=== PATIENT | male | born 1945 | race Caucasian/White ===

== ENCOUNTER 2018-05-08 07:30 | Inpatient (IN) ==
[2018-05-08] MEDS ORDERED: Metoprolol Tartrate 25 MG Tablet PO SCH (10:15)
[2018-05-08] MEDS ORDERED: Chlorhexidine 4% Topical 120 APPLIC/120 ML Bottle TOPICAL SCH (10:15)
[2018-05-08] MEDS ORDERED: Chlorhexidine Gluconate 2% 1 Pack (2 Cloths) TOPICAL SCH (10:15)
[2018-05-08] MEDS ORDERED: Vancomycin Inj 1,000 MG in Sodium Chlor 0.9% Inj 250 ML IV.SIG SCH (11:00)
[2018-05-08] MEDS ORDERED: ceFAZolin 2 GM Premix Inj 2 GM/50 ML PIGGYBACK IV.SIG SCH (11:00)
[2018-05-08] MEDS ORDERED: Sodium Chlor 0.9% Inj 500 ML IV.SIG SCH (11:00)
[2018-05-08] MEDS ORDERED: Ketamine Inj 50 MG/5 ML Syringe IV.PUSH ONE (11:13)
[2018-05-08] MEDS ORDERED: Dexmedetomidine Inj 200 MCG/2 ML Vial ONE (11:13)
[2018-05-08] MEDS ORDERED: Glycopyrrolate Inj 1 MG/5 ML Syringe IV.PUSH ONE (12:00)
[2018-05-08] MEDS ORDERED: Lidocaine PF 1% Inj 5 ML Syringe INFILTRATN ONE (12:00)
[2018-05-08] MEDS ORDERED: Phenylephrine/NS 1000 MCG/10ML Syringe IV.PUSH ONE (12:00)
[2018-05-08] MEDS ORDERED: Neostigmine Inj 5 MG/5 ML Syringe IV.PUSH ONE (12:00)
[2018-05-08 13:35] LABS: ABG Base Excess -1.3 mmol/L (-2-2); ABG PCO2 42 mmHg (38-42); ABG PO2 77 mmHG (61-120)
[2018-05-08] MEDS ORDERED: fentaNYL Citrate Inj 100 MCG/2 ML Ampul ONE ×2 (13:39→14:33)
--- NOTE | 2018-05-08 13:48 | P.OP ---
- Preoperative Diagnosis Malfunctioning left total hip replacement arthroplasty. Loosened femoral stem. Status post cemented left hip bipolar replacement arthroplasty, remote - Postoperative Diagnosis Same Date of procedure: 05/08/18 Procedure: Revision left total hip replacement arthroplasty Anesthesia: JOHNATHANA Surgeon: Pancho Hope MD Filler In: Bakari Hope MD Operation and Findings: EBL: 1300 cc INDICATION: This patient is a 73-year-old male status post cemented left bipolar hip replacement in [facility] several years ago for a fractured femoral neck. The patient has evidence of loosening of the femoral stem. There is no evidence of infection. He has shortening and malfunction of the left hip replacement. He now presents for surgical treatment. NOTE: Bakari Hope MD was present for the entire surgical procedure as my tax accounting assistant. In my medical opinion his skill and care was necessary for the proper management of this patient. COMPONENTS: COMPANY: [employer] CUP: [place], 60 mm, 100 series STEM: Size 18.0, AML, large triangle, high offset. HEAD: 36, +5, metal, 12/14 taper PROCEDURE: This patient was brought to the operating room and anesthetized in the supine position and positioned on the routine table in the clean air suite. The patient was then rolled to a left side up lateral position and held with a Biomet hip positioner. The hip and leg was scrubbed with alcohol followed by Hibiclens followed by chloro prep and draped sterilely. A timeout was done and antibiotics were given within a routine time window. The posterior previous incision was excised. The iliotibial band was opened in line with the incision. The Charnley retractors were positioned. The posterior capsule and external rotators were taken down together in a sleeve. The sciatic nerve was palpated to be free of any obstruction or compression and posterior to the hip joint without any evidence of traction from the retractor. The previous stem and bipolar cup was exposed. The hip was dislocated posteriorly. The head was removed after being disimpacted. The femoral stem was removed. There was no cement around the stem. We worked in the canal using a combination of curettes, osteotomes and reverse gouges. The previous cement was removed completely. We drilled through the distal cement mantle. The previous cement restrictor was removed. The canal was curetted of all fibrinous debris. Bone quality appeared to be excellent. The canal was reamed initially from a 13 mm up to 17.5 mm. This was broached to accept an 18 mm AML stem with a large triangle and high offset. Overall fit and fill was excellent. We had trialed with a 16.5 and the triangle was not large enough because of the nature of the patient's anatomy. The acetabulum was inspected. Deep retractors were positioned. The acetabulum was deepened down to the floor and started with a proper size reamer and reaming up to 59 mm. This was trialed with the same size trial. Overall fit was satisfactory. The proper cup was placed in approximately 40 of abduction and 30 of forward flexion. The final liner was positioned. The final stem was inserted in approximately 20 of anteversion. The final head was impacted. The hip was reduced. Leg length appeared to be equalized. The patient was approximately 1 inch short to begin with. At 90 flexion it was stable to 60 of internal rotation. With full external rotation and extension, it could not be subluxed anteriorly. The posterior capsule and external rotators were repaired through bone with interrupted #2 Tycron sutures. The piriformis muscle was repaired with the same. The iliotibial band with interrupted #1 Vicryl sutures. Subcutaneous tissue was approximated with 2-0 Vicryl suture and skin with running intradermal 3-0 Vicryl followed by Steri-Strips and benzoin. A sterile dressing was applied.. The sponge count needle counts and instrument counts were all correct. The patient was awakened and taken to the recovery room in satisfactory condition FINDINGS: The stem was grossly loose. The cement mantle was loose at the top. There did not appear to be any obvious complication.
[2018-05-08] MEDS ORDERED: Post-op Orders (for Pharmacy) OTHER STA (14:17)
[2018-05-08] MEDS ORDERED: Bisacodyl 10 MG Supp RECTAL PRN (14:17)
[2018-05-08] MEDS ORDERED: Morphine Inj 4 MG/ML Vial IV.PUSH PRN (14:17)
[2018-05-08 14:38] LABS: ABG Base Excess -3.1 mmol/L (-2-2); ABG PCO2 33 mmHg (38-42); ABG PO2 125 mmHG (61-120)
[2018-05-08] MEDS: *morphine SULFATE 10 MG/ML PERIprocedure ONLY ONE ×2 (14:52→15:36)
[2018-05-08 15:13] LABS: Hematocrit 33.8 % (39.0-51.0); Hemoglobin 11.6 gm/dL (13.0-17.0); Mean Corpuscular HGB Conc 34.3 % (32.0-36.0); Mean Corpuscular Hemoglobin 33.3 pg (27.0-34.0); Mean Corpuscular Volume 97.1 fL (80.0-100.0); Mean Platelet Volume 8.5 fL (7.0-11.0); Platelet Count 174 th/mm3 (150-450); Red Blood Count 3.48 mil/mm3 (4.50-5.90); Red Cell Distribution Width 13.3 % (11.6-17.2); White Blood Count 10.1 th/mm3 (4.0-11.0)
[2018-05-08] MEDS ORDERED: *morphine SULFATE 10 MG/ML PERIprocedure ONLY ONE (15:28)
--- NOTE | 2018-05-08 16:33 | XR ---
EXAM DATE: 05/08/2018 3:58 PM EDT AGE/SEX: 73 years / Male INDICATIONS: Post op left hip prosthesis. CLINICAL DATA: This is the patient's initial encounter. Patient reports that signs and symptoms have been present for 1 day and indicates a pain score of 10/10. MEDICAL/SURGICAL HISTORY: None. None. COMPARISON: No prior exams available for comparison. FINDINGS: The patient is post left hip arthroplasty. The orthopedic hardware is in excellent position. The alig nment is good. There is no evidence of complication. CONCLUSION: Orthopedic hardware in excellent position. Electronically signed by: Ifeanyi Alcaraz MD 05/08/2018 4:32 PM EDT
[2018-05-08] MEDS ORDERED: LORazepam 1 MG Tablet PO PRN (17:25)
[2018-05-08] MEDS ORDERED: Haloperidol Inj 5 MG/ML Ampul IV.PUSH PRN (17:25)
--- NOTE | 2018-05-08 17:40 | P.CON ---
History of Present Illness Service: Medicine Consult date: 05/08/18 Requesting Physician: Bakari Hope Reason for Consult: medical management Primary Care Provider: Angel Fonseca MD Chief Complaint: medical management History of Present Illness: This is a 73-year-old male past medical history of hypertension and alcohol dependence who presented with revision of the left total hip replacement arthroplasty by Dr. Bakari Hope. Medical hospitalist consulted for medical management. Patient seen on the orthopedic floor after surgery. He was very groggy but was able to give me history. Patient complaining of left hip pain. Otherwise after the interview he went to sleep right away. I spoke to patient' s nurse who stated that when patient came onto the floor his systolic blood pressure was 80. He was put in Trendelenburg position in which his blood pressure improved to systolic blood pressure 115. Patient also received 2 L bolus in the PACU and was placed on 100 cc/h of normal saline. Patient did lose about 1500 cc of blood during the surgery and when he presented on the floor his bandages was saturated with blood. Patient stated that he drinks about 12 cans of beer a day. He stated that he does get very shaky when he does not drink. Otherwise he has no other complaints. Review of Systems Constitutional: Denies anorexia, Denies body ache(s), Denies chills, Denies daytime sleepiness, Denies excessive sweating, Denies fatigue, Denies fever(s), Denies headache(s), Denies increased appetite, Denies lack of energy, Denies malaise, Denies night sweats, Denies weakness, Denies weight gain, Denies weight loss, Denies other Eyes: Denies blind spots, Denies blurry vision, Denies bulging eyes, Denies change in vision, Denies double vision, Denies discharge, Denies dry eyes, Denies floaters, Denies irritation, Denies itchy eyes, Denies loss of vision, Denies pain, Denies requires corrective lenses, Denies sensitivity to light, Denies other Ears, Nose, Mouth, and Throat: Denies abnormal hearing, Denies bleeding gums, Denies bad breath, Denies change in voice, Denies dental pain, Denies difficulty swallowing, Denies dizziness, Denies dry mouth, Denies ear discharge , Denies ear pain, Denies facial pain, Denies headache(s), Denies hearing loss, Denies hoarseness, Denies lip swelling, Denies nosebleed, Denies mouth lesions, Denies mouth pain, Denies nasal congestion, Denies nasal discharge, Denies nasal obstruction, Denies nasal trauma, Denies neck lump, Denies neck pain, Denies nose pain, Denies pain with swallowing, Denies poor balance, Denies post nasal drip, Denies ringing in the ears, Denies sinus pain, Denies sinus pressure , Denies sore throat, Denies throat swelling, Denies tongue swelling, Denies other Cardiovascular: Denies chest pain, Denies chest pain at rest, Denies chest pain with activity, Denies excessive sweating, Denies fainting, Denies fast heart rate, Denies foot swelling, Denies generalized swelling, Denies irregular heart rhythm, Denies leg pain with activity, Denies leg sores, Denies leg swelling, Denies lightheadedness, Denies radiating jaw, neck or arm pain, Denies rapid, pounding, or irregular heartbeat, Denies shortness of breath, Denies shortness of breath with activity, Denies shortness of breath when lying down, Denies shortness of breath causing sudden awakening, Denies slow heart rate, Denies other Respiratory: Denies change in phlegm color, Denies chest congestion, Denies cough, Denies coughing up blood, Denies excessive phlegm production, Denies pain on inspiration, Denies pain with cough, Denies shortness of breath, Denies shortness of breath with activity, Denies snoring, Denies stridor, Denies wheezing, Denies other Gastrointestinal: Denies abdominal pain, Denies belching, Denies black, tarry stools, Denies bloating, Denies bright, red blood in stools, Denies change in bowel habits, Denies constant urge to pass stool, Denies change in stools, Denies coffee ground vomit, Denies constipation, Denies cramping, Denies difficulty swallowing, Denies excessive passing of gas, Denies feeling full early, Denies heartburn, Denies incontinent of stools, Denies loose stools, Denies nausea, Denies pain with swallowing, Denies vomiting, Denies vomiting blood, Denies other Genitourinary: Denies blood in semen, Denies blood in urine, Denies decreased urination, Denies difficulty urinating, Denies difficulty with ejaculations, Denies erectile dysfunction, Denies genital lesions, Denies genital pain, Denies painful urination, Denies side pain, Denies frequent nighttime urination , Denies painful ejaculations, Denies penile discharge, Denies scrotal swelling , Denies testicle lump, Denies testicle pain, Denies urinary frequency, Denies urinary hesitancy, Denies urinary incontinence, Denies urinary urgency, Denies other Musculoskeletal: Reports joint pain Comments: Right hip pain where he had the surgery at. Skin/Breast: Denies acne, Denies bleeding lesions, Denies boil, Denies breast swelling, Denies breast skin changes, Denies breast pain, Denies breast lump, Denies change in breast shape, Denies change in hair, Denies change in skin color, Denies changing lesions, Denies dry skin, Denies excessive hair growth, Denies hair loss, Denies itching, Denies lesions, Denies nail changes, Denies new lesions, Denies nipple discharge, Denies non-healing lesions, Denies redness , Denies sensitivity to light, Denies rash, Denies skin pain, Denies skin ulcer , Denies sores, Denies stretch vallejo, Denies unusual bruising, Denies wounds, Denies yellowing of the skin, Denies other Neurologic: Denies abnormal hearing, Denies abnormal movements, Denies abnormal speech, Denies abnormal walking, Denies behavioral changes, Denies burning sensations, Denies confusion, Denies dizziness, Denies fainting, Denies frequent falls, Denies headache(s), Denies lack of coordination, Denies localized weakness, Denies loss of vision, Denies memory loss, Denies numbness, Denies other visual disturbances, Denies radiating pain, Denies restless legs, Denies convulsions, Denies seizure-like activity, Denies sensory deficit, Denies tingling, Denies tingling/numbness/burning sensations, Denies tremor(s), Denies unsteadiness, Denies weakness, Denies other Psychiatric: Denies abnormal sleep pattern, Denies anxiety, Denies behavioral changes, Denies change in appetite, Denies change in sex drive, Denies confusion , Denies depression, Denies difficulty concentrating, Denies hearing things others do not hear, Denies hopelessness, Denies irritability, Denies lack of enjoyment, Denies memory loss, Denies mood swings, Denies panic attacks, Denies paranoia, Denies seeing things others do not see, Denies sensing things others do not sense, Denies tactile hallucinations, Denies thoughts of hurting/killing others, Denies thoughts of hurting/killing yourself, Denies other Endocrine: Denies cold intolerance, Denies excessive sweating, Denies flushing, Denies heat intolerance, Denies increased hunger, Denies increased thirst, Denies increased urination, Denies rapid, pounding, or irregular heartbeat, Denies other Hematologic/Lymphatic: Denies easy bleeding, Denies easy bruising, Denies enlarged lymph nodes, Denies other Allergic/Immunologic: Denies GI upset with certain foods, Denies hives, Denies itchy eyes, Denies lip swelling, Denies seasonal runny nose, Denies throat swelling, Denies tongue swelling, Denies wheezing, Denies other PMFSH - History History Provided By: Patient - Medical History Medical History: Medical History (Last Updated 05/08/18 @ 17:35 by Ana Rivera MD) Alcohol abuse Hypertension - Surgical History Surgical History: Surgical History (Last Reviewed 05/08/18 @ 15:56 by Maricarmen Kemp PT) H/O total hip arthroplasty - Family History Family History: Family History (Last Updated 05/08/18 @ 17:35 by Ana Rivera MD) Other Family history non-contributory - Tobacco History Second Hand Smoke Exposure: No Smoking Status: Never smoker - Alcohol History How Often Do You Have a Drink Containing Alcohol: 4 or more times a week - Substance Use History Substance History: Active Abuse - Travel History [facility] Within the Last 8 Weeks: No Medications and Allergies Active Medications: Active Medications Hydrocodone Bitart/Acetaminophen ([place] 7.5/325) 1 tab PO Q4H PRN PRN Reason: PAIN LESS THAN 5 ON SCALE Hydrocodone Bitart/Acetaminophen ([place] 7.5/325) 2 tab PO Q6H PRN PRN Reason: PAIN SCALE 5 TO 10 Al Hydroxide/Mg Hydroxide (Milk Of Magnesia Liq) 30 ml PO BID PRN PRN Reason: Mild Constipation Bisacodyl (Dulcolax Supp) 10 mg RECTAL DAILY PRN PRN Reason: SEVERE CONSITIPATION Chlorhexidine Gluconate (Chlorhexidine 2% Cloth) 3 pack 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 [facility] Stop: 05/11/18 10:11 Last Admin: 05/08/18 10:00 Dose: 3 pack Chlorhexidine Gluconate (Hibiclens 4% Topical) 1 applicatio TOPICAL ONCE [facility] Stop: 05/12/18 10:14 Flumazenil (Romazecon Inj) 0.2 mg IV.PUSH Q1M PRN PRN Reason: OVERSEDATION Folic Acid (Folic Acid) 1 mg PO DAILY [facility] Haloperidol Lactate (Haldol Inj) 1 mg IV.PUSH Q15M PRN PRN Reason: for severe agitation Sodium Chloride (Ns Inj) 500 mls @ 30 mls/hr IV.SIG .Q10H [facility] Stop: 05/11/18 10:11 Lactated Ringer's (Lr 1000 Ml Inj) 1,000 mls @ 30 mls/hr IV.SIG .Q24H [facility] Stop: 05/11/18 10:11 Last Infusion: 05/08/18 12:30 Dose: Infused Vancomycin HCl 1,000 mg/ (Sodium Chloride) 250 mls @ 250 mls/hr IV.SIG [employer] [facility] Stop: 05/11/18 10:15 Last Infusion: 05/08/18 11:03 Dose: Infused Cefazolin Sodium/Dextrose (Ancef 2 Gm Premix Inj) 2 gm in 50 mls @ 100 mls/hr IV.SIG [employer] [facility] Stop: 05/12/18 10:59 Cefazolin Sodium 1,000 mg/ (Sodium Chloride) 100 mls @ 200 mls/hr IV.SIG Q6H [facility] Stop: 05/09/18 03:29 Last Admin: 05/08/18 16:30 Dose: 200 mls/hr Lactated Ringer's (Lr 1000 Ml Inj) 1,000 mls @ 0 mls/hr IV.SIG .Q0M [facility] Stop: 05/08/18 23:59 Last Admin: 05/08/18 15:40 Dose: 1,000 mls/hr Lactated Ringer's (Lr 1000 Ml Inj) 1,000 mls @ 0 mls/hr IV.SIG .Q0M [facility] Last Admin: 08/16/18 15:51 Dose: 1,000 mls/hr Lactulose (Lactulose Liq) 30 ml PO DAILY PRN PRN Reason: SEVERE CONSITIPATION Lorazepam (Ativan) 1 mg PO Q4H PRN PRN Reason: for CIWA 8-10 Lorazepam (Ativan) 2 mg PO Q2H PRN PRN Reason: for CIWA 11-14 Lorazepam (Ativan Inj) 2 mg IV.PUSH Q2H PRN PRN Reason: for CIWA 11-14 Lorazepam (Ativan Inj) 2 mg IV.PUSH Q1H PRN PRN Reason: for CIWA 15-20 Lorazepam (Ativan Inj) 2 mg IV.PUSH Q15M PRN PRN Reason: for CIWA > 20 Lorazepam (Ativan Inj) 1 mg IV.PUSH Q4H PRN PRN Reason: for CIWA 8-10 Metoprolol Tartrate (Lopressor) 25 mg PO [employer] [facility] Stop: 05/11/18 10:11 Last Admin: 05/08/18 10:36 Dose: Not Given Miscellaneous Information ([facility] Information) 1 each OTHER UNSCH PRN PRN Reason: SEE LABEL COMMENTS Stop: 05/09/18 14:14 Morphine Sulfate (Morphine Inj) 3 mg IV.PUSH Q3H PRN PRN Reason: BREAKTHROUGH PAIN Multivitamins (Theragran) 1 tab PO DAILY [facility] Ondansetron HCl (Zofran Odt) 4 mg PO Q6H PRN PRN Reason: NAUSEA OR VOMITING Patient Medication Teaching (Coumadin Booklet) 1 each OTHER ONCE ONE Stop: 05/08/18 14:18 Povidone Iodine (Betadine 5% Antisepsis Kit) 1 applicatio EACH [employer] [facility] Stop: 05/11/18 10:11 Last Admin: 05/08/18 10:20 Dose: 1 applicatio Senna/Docusate Sodium (Karla-Colace) 1 tab PO BID [facility] Sennosides (Senokot) 17.2 mg PO BID PRN PRN Reason: Moderate Constipation Sodium Chloride (Ns Flush) 2 ml IV.FLUSH PRN PRN PRN Reason: FLUSH AFTER USING IV ACCESS Sodium Chloride (Ns Flush) 2 ml IV.FLUSH BID [facility] Thiamine HCl (Vitamin B1) 100 mg PO DAILY [facility] Warfarin Sodium (Coumadin) 0 mg PO DAILY@1600 [facility]; Protocol Allergies Allergy/AdvReac Type Severity Reaction Status Date / Time No Known Allergies Allergy Uncoded 04/02/12 08:07 Home Medications Medication Instructions Recorded Confirmed Type amlodipine 5 mg PO DAILY 05/08/18 05/08/18 History Physical Exam Vital signs: Vital Signs 05/08/18 10:24 05/08/18 14:14 05/08/18 14:30 Temperature 99.3 F 97.7 F Pulse Rate 88 104 H 88 Respiratory Rate 18 16 16 Blood Pressure 161/93 H 108/67 98/59 L Pulse Oximetry 97 98 98 05/08/18 14:45 05/08/18 15:00 05/08/18 15:15 Temperature Pulse Rate 81 83 81 Respiratory Rate 16 16 16 Blood Pressure 85/46 L 88/57 L 97/57 L Pulse Oximetry 98 98 98 05/08/18 15:30 05/08/18 15:45 05/08/18 16:00 Temperature Pulse Rate 78 76 77 Respiratory Rate 16 16 16 Blood Pressure 95/50 L 99/58 L 112/58 L Pulse Oximetry 98 98 98 05/08/18 16:15 05/08/18 16:30 Temperature 98.4 F Pulse Rate 77 79 Respiratory Rate 16 16 Blood Pressure 97/52 L 107/60 Pulse Oximetry 98 98 Intake & Output 05/07/18 05/08/18 05/08/18 18:59 06:59 18:59 Intake Total 2350 / 2350 Output Total 1400 / 1400 Balance 950 / 950 Weight 96.5 kg Intake: IV 1250 / 1250 LR 1000 mL Inj 1,000 ML @ 30 1000 / 1000 mls/hr IV.SIG .Q24H [facility] Rx#: [id number] Vancomycin Inj 1,000 MG In NS 250 / 250 Inj 250 ML @ 250 mls/hr IV.SIG [employer] [facility] Rx#:[id number] Anesthesia Amount 1100 / 1100 Output: Estimated Blood Loss 1400 / 1400 Other: Weight On Admission 96.5 kg - Constitutional no acute distress - Routine HEENT Exam Head: Present: normocephalic, atraumatic Eye: Present: EOMI, PERRL - Routine Neck Exam Present: supple - Routine Respiratory Exam Present: CTA bilaterally - Routine Cardiovascular Exam Present: RRR, S1, S2 Comments: No rubs murmurs or gallops. - Routine Abdominal Exam Present: soft, normoactive bowel sounds Comments: No tenderness to palpation. Negative for any peritoneal signs. - Routine Extremities Exam Present: edema - Routine Neurological Exam Patient is groggy but he is able to give me a history. Motor and sensation grossly intact. - Routine Psychiatric Exam Present: normal affect, normal thought process Assessment and Plan - Plan This is a 73-year-old male who presented for elective surgery for left total hip replacement arthroplasty Status post revision of the left total hip replacement arthroplasty by Dr. Bakari Hope today 05/08/2018 -Management per orthopedic surgeon. Postop hypotension -Most likely due to anesthesia. Patient did have significant blood loss will recheck hemoglobin. Transfuse if needed. -Patient received 2 L bolus of normal saline and is on 100 cc/h of normal saline. Blood pressure has improved significantly. -Continue to monitor closely. We will also discontinue amlodipine until blood pressure improves. History of hypertension -Patient now have postop hypotension. Will need to DC amlodipine. Alcohol abuse -Per patient he does get withdrawals if he does not drink alcohol. Will place patient on CIWA protocol. We will also give him thiamine, folic acid, and multivitamin. -Continue to monitor for any signs of alcoholic withdrawals. DVT prophylaxis -Per primary team.
[2018-05-08 20:18] LABS: Hematocrit 29.4 % (39.0-51.0); Hemoglobin 10.7 gm/dL (13.0-17.0)
[2018-05-08] MEDS: Senna/Docusate Sodium 8.6/50 MG Tablet PO SCH (20:44)
[2018-05-09 06:16] LABS: Hematocrit 26.9 % (39.0-51.0); Hemoglobin 9.3 gm/dL (13.0-17.0)
[2018-05-09 06:23] LABS: INR 1.2 Ratio; Prothrombin Time 12.1 sec (9.8-11.6)
--- NOTE | 2018-05-09 07:00 | P.PNOP ---
Subjective Interval history: pt doing well, mild hip pain would like to be discharged to SNF today no SOB, no chest pain Physical Exam Vital signs: Vital Signs 05/08/18 10:24 05/08/18 14:14 05/08/18 14:30 Temperature 99.3 F 97.7 F Pulse Rate 88 104 H 88 Respiratory Rate 18 16 16 Blood Pressure 161/93 H 108/67 98/59 L Pulse Oximetry 97 98 98 05/08/18 14:45 05/08/18 15:00 05/08/18 15:15 Temperature Pulse Rate 81 83 81 Respiratory Rate 16 16 16 Blood Pressure 85/46 L 88/57 L 97/57 L Pulse Oximetry 98 98 98 05/08/18 15:30 05/08/18 15:45 05/08/18 16:00 Temperature Pulse Rate 78 76 77 Respiratory Rate 16 16 16 Blood Pressure 95/50 L 99/58 L 112/58 L Pulse Oximetry 98 98 98 05/08/18 16:15 05/08/18 16:30 05/08/18 17:35 Temperature 98.4 F 98.3 F Pulse Rate 77 79 77 Respiratory Rate 16 16 17 Blood Pressure 97/52 L 107/60 115/62 Pulse Oximetry 98 98 98 05/08/18 20:00 05/08/18 23:28 05/09/18 00:00 Temperature 98.5 F 97.5 F L Pulse Rate 84 77 Respiratory Rate 18 18 16 Blood Pressure 99/64 L 107/63 Pulse Oximetry 98 98 Intake & Output 05/08/18 05/08/18 05/09/18 06:59 18:59 06:59 Intake Total 2350 / 2350 300 / 300 Output Total 1400 / 1400 Balance 950 / 950 300 / 300 Weight 96.5 kg Intake: IV 1250 / 1250 300 / 300 LR 1000 mL Inj 1,000 ML @ 30 1000 / 1000 mls/hr IV.SIG .Q24H [facility] Rx#: [id number] Vancomycin Inj 1,000 MG In NS 250 / 250 Inj 250 ML @ 250 mls/hr IV.SIG [employer]UC[employer]CR[employer] [facility] Rx#:[id number] Ancef Inj 1,000 MG In NS Inj 300 / 300 100 ML @ 200 mls/hr IV.SIG Q6H [facility] Rx#:[id number] Anesthesia Amount 1100 / 1100 Output: Estimated Blood Loss 1400 / 1400 Other: Date of Last Bowel Movement 05/08/18 Weight On Admission 96.5 kg Narrative: left hip dressing dry and intact no calf tenderness +NVI Results - Labs CBC & Chem 7: 05/09/18 05:47 Laboratory Results - last 24 hr 05/08/18 05/08/18 05/08/18 10:15 13:18 14:20 WBC 10.1 RBC 3.48 L Hgb 11.6 L Hct 33.8 L MCV 97.1 MCH 33.3 MCHC 34.3 RDW 13.3 Plt Count 174 MPV 8.5 PT INR Puncture Site Drawn in or Patient Temperature 98.6 O2 Saturation 91 ABG pH 7.36 L ABG pCO2 42 ABG pO2 77 ABG HCO3 23 ABG O2 Content 15.4 ABG Base Excess -1.3 ABG Methemoglobin 1.9 Hemoglobin 12.0 Carboxyhemoglobin 1.3 O2 Delivery Device Or Liter Flow Inspired O2 60 Critical Value No Blood Type A Positive Antibody Screen Negative MTS Gel Crossmatch See Detail 05/08/18 05/08/18 05/09/18 14:22 19:58 05:47 WBC RBC Hgb 10.7 L 9.3 L Hct 29.4 L 26.9 L MCV MCH MCHC RDW Plt Count MPV PT INR Puncture Site Art line Patient Temperature 98.6 O2 Saturation 95 ABG pH 7.41 ABG pCO2 33 L ABG pO2 125 H ABG HCO3 21 L ABG O2 Content 15.6 ABG Base Excess -3.1 L ABG Methemoglobin 1.8 Hemoglobin 11.5 L Carboxyhemoglobin 1.5 O2 Delivery Device Nasal cannula Liter Flow 3.00 Inspired O2 Critical Value No Blood Type Antibody Screen MTS Gel Crossmatch 05/09/18 05:47 WBC RBC Hgb Hct MCV MCH MCHC RDW Plt Count MPV PT 12.1 H INR 1.2 Puncture Site Patient Temperature O2 Saturation ABG pH ABG pCO2 ABG pO2 ABG HCO3 ABG O2 Content ABG Base Excess ABG Methemoglobin Hemoglobin Carboxyhemoglobin O2 Delivery Device Liter Flow Inspired O2 Critical Value Blood Type Antibody Screen MTS Gel Crossmatch - Imaging Impressions Hip X-Ray 05/08/18 00:00 CONCLUSION: Orthopedic hardware in excellent position. Assessment and Plan - Assessment and Plan POD #1 s/p L rev NED WBAT low dose coumadin for dvt prop history of alcohol dependence discharge to SNF today, orthopedically stable
[2018-05-09] MEDS ORDERED: amLODIPine 5 MG Tablet PO SCH (09:00)
[2018-05-09] MEDS: Folic Acid 1 MG Tablet PO SCH (09:23)
[2018-05-09] MEDS: Senna/Docusate Sodium 8.6/50 MG Tablet PO SCH ×2 (09:24→22:13)
--- NOTE | 2018-05-09 16:14 | P.PNIM ---
Subjective Interval history: Follow-up for postop hypotension Patient has no complaints. He stated that he is doing very well. Patient very anxious to go to a SNF. He denies any chest pain, shortness of breathing, palpitation or lightheadedness or dizziness. Physical Exam Vital signs: Vital Signs 05/08/18 16:15 05/08/18 16:30 05/08/18 17:35 Temperature 98.4 F 98.3 F Pulse Rate 77 79 77 Respiratory Rate 16 16 17 Blood Pressure 97/52 L 107/60 115/62 Pulse Oximetry 98 98 98 05/08/18 20:00 05/08/18 23:28 05/09/18 00:00 Temperature 98.5 F 97.5 F L Pulse Rate 84 77 Respiratory Rate 18 18 16 Blood Pressure 99/64 L 107/63 Pulse Oximetry 98 98 05/09/18 04:00 05/09/18 08:00 Temperature 98.6 F 98.6 F Pulse Rate 89 88 Respiratory Rate 16 18 Blood Pressure 120/70 110/62 Pulse Oximetry 94 L 94 L Intake & Output 05/08/18 05/09/18 05/09/18 18:59 06:59 18:59 Intake Total 2350 / 2350 780 / 780 480 / 480 Output Total 1400 / 1400 450 / 450 Balance 950 / 950 330 / 330 480 / 480 Weight 96.5 kg Intake: IV 1250 / 1250 300 / 300 LR 1000 mL Inj 1,000 ML @ 30 1000 / 1000 mls/hr IV.SIG .Q24H RANDY Rx#: [id number] Vancomycin Inj 1,000 MG In NS 250 / 250 Inj 250 ML @ 250 mls/hr IV.SIG [employer] RANDY Rx#:[id number] Ancef Inj 1,000 MG In NS Inj 300 / 300 100 ML @ 200 mls/hr IV.SIG Q6H RANDY Rx#:[id number] Oral 480 / 480 480 / 480 Anesthesia Amount 1100 / 1100 Output: Urine 450 / 450 Estimated Blood Loss 1400 / 1400 Other: # Voids 2 Date of Last Bowel Movement 05/08/18 Weight On Admission 96.5 kg - Constitutional no acute distress - Routine Respiratory Exam Present: CTA bilaterally - Routine Cardiovascular Exam Present: RRR, S1, S2 Comments: No rubs murmurs or gallops. - Routine Abdominal Exam Present: soft, normoactive bowel sounds Comments: No tenderness to palpation. Negative for any peritoneal signs. - Routine Extremities Exam Comments: Strength is grossly intact. Results - Labs CBC & Chem 7: 05/09/18 05:47 Laboratory Results - last 24 hr 05/08/18 05/08/18 05/09/18 10:15 19:58 05:47 Hgb 10.7 L 9.3 L Hct 29.4 L 26.9 L PT INR Blood Type A Positive Antibody Screen Negative MTS Gel Crossmatch See Detail 05/09/18 05:47 Hgb Hct PT 12.1 H INR 1.2 Blood Type Antibody Screen MTS Gel Crossmatch - Imaging Impressions Hip X-Ray 05/08/18 00:00 CONCLUSION: Orthopedic hardware in excellent position. 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 Bakari Hope today 05/08/2018 -Management per orthopedic surgeon. -Per orthopedic surgeon patient is clear for discharge. Pending placement. Postop hypotension, resolved. -Most likely due to anesthesia. Patient did have significant blood loss will recheck hemoglobin. -trended Hemoglobin and stable. -Status post fluid resuscitation with improvement in blood pressure. -Patient is currently normotensive. Amlodipine was discontinued. I would only restart amlodipine if he has elevated blood pressure. History of hypertension -At the moment patient is normotensive. Only restart amlodipine if he is hypertensive. Alcohol abuse -On [facility] protocol. Patient also receiving thiamine, multivitamin, folic acid. DVT prophylaxis -Per primary team.
[2018-05-10 07:17] LABS: Hematocrit 24.3 % (39.0-51.0); Hemoglobin 8.4 gm/dL (13.0-17.0); INR 1.1 Ratio; Prothrombin Time 11.5 sec (9.8-11.6)
--- NOTE | 2018-05-10 08:17 | P.PNOP ---
Subjective Interval history: a little bit painful but has not had any pain meds since last night. Physical Exam Vital signs: Vital Signs 05/09/18 16:00 05/09/18 20:00 05/10/18 00:00 Temperature 97.3 F L 97.9 F 98.5 F Pulse Rate 98 H 104 H 105 H Respiratory Rate Blood Pressure 131/80 121/56 L 117/57 L Pulse Oximetry 96 92 L 92 L Intake & Output 05/09/18 05/10/18 05/10/18 18:59 06:59 18:59 Intake Total 480 / 480 2720 / 2720 Output Total 700 / 700 Balance 480 / 480 2019 Intake: IV 2000 / 1999 LR 1000 mL Inj 1,000 ML @ Wide 1000 / 1000 Open IV.SIG .Q0M RANDY Rx#: [id number] Oral 480 / 480 720 / 720 Output: Urine 700 / 700 Other: # Voids 4 Date of Last Bowel Movement 05/08/18 Narrative: in bed, nad dressing c/d/i neg homans nvi Results - Labs CBC & Chem 7: 05/10/18 06:04 Laboratory Results - last 24 hr 05/10/18 05/10/18 06:04 06:04 Hgb 8.4 L Hct 24.3 L PT 11.5 INR 1.1 Assessment and Plan - Ortho Post Op Day # 2 - Assessment and Plan POD #2 s/p L rev NED WBAT low dose coumadin for dvt prop history of alcohol dependence post-op anemia - asymptomatic discharge to SNF when authorized, orthopedically stable
[2018-05-10] MEDS: Folic Acid 1 MG Tablet PO SCH (09:03)
[2018-05-10] MEDS: Senna/Docusate Sodium 8.6/50 MG Tablet PO SCH ×2 (09:03→21:00)
--- NOTE | 2018-05-10 12:08 | P.PN ---
Subjective Interval history: Follow-up visit postop hypotension, EtOH. Patient seen and examined today. Reports he is doing okay. He is all dressed up to be going to jail facility in [place]. Denies pain and discomfort. Denies SOB/ dyspnea. Denies chest pain, palpitations, headaches, dizziness. Denies fevers, chills, n/ v/d. Denies hematuria, dysuria. Physical Exam Vital signs: Vital Signs 05/09/18 16:00 05/09/18 20:00 05/10/18 00:00 Temperature 97.3 F L 97.9 F 98.5 F Pulse Rate 98 H 104 H 105 H Respiratory Rate Blood Pressure 131/80 121/56 L 117/57 L Pulse Oximetry 96 92 L 92 L 05/10/18 08:00 05/10/18 09:52 05/10/18 09:55 Temperature 98 F Pulse Rate 92 H Respiratory Rate Blood Pressure 115/67 Pulse Oximetry 96 05/10/18 11:44 Temperature 98.8 F Pulse Rate 94 H Respiratory Rate 18 Blood Pressure 150/74 H Pulse Oximetry 95 Intake & Output 05/09/18 05/10/18 05/10/18 18:59 06:59 18:59 Intake Total 480 / 480 2720 / 2720 Output Total 700 / 700 Balance 480 / 480 2019 Intake: IV 2000 / 2000 LR 1000 mL Inj 1,000 ML @ Wide 1000 / 1000 Open IV.SIG .Q0M RANDY Rx#: [id number] Oral 480 / 480 720 / 720 Output: Urine 700 / 700 Other: # Voids 4 Date of Last Bowel Movement 05/08/18 05/09/18 Narrative: GENERAL: This is a well-nourished, well-developed patient, in no apparent distress. SKIN: Warm and dry. HEENT: Normocephalic. Nose without bleeding. Airway patent. NECK: Trachea midline. No JVD. Supple. CARDIOVASCULAR: Regular rate and rhythm without murmurs, gallops, or rubs. RESPIRATORY: Diminished breath sounds no wheezes, rales, or rhonchi. GASTROINTESTINAL: Abdomen soft, non-tender, nondistended. Bowel Sounds normoactive x4. MUSCULOSKELETAL: Extremities without clubbing, cyanosis. Bilateral lower extremity trace edema NEUROLOGICAL: Awake and alert. Oriented to place, person. Moves all extremities. Normal speech. 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 Bakari Hope today 05/08/2018 -Management per orthopedic surgeon. -Per orthopedic surgeon patient is clear for discharge. Awaiting pickup Postop hypotension, resolved. History of hypertension -Most likely due to anesthesia. Patient did have significant blood loss will recheck hemoglobin. -trended Hemoglobin and stable. -Status post fluid resuscitation with improvement in blood pressure. -Restart amlodipine low-dose daily if patient's blood pressure starts to be elevated. Alcohol abuse -On [facility] protocol. Patient also receiving thiamine, multivitamin, folic acid. DVT prophylaxis -Per primary team. Hospitalist clear for discharge. Code Status: Full code Discussed Condition With: Patient, nurse Discharge Planning: DC disposition by primary team
--- NOTE | 2018-05-11 06:23 | P.PNOP ---
Subjective Interval history: history of alcoholism pt concerned for etoh withdrawl requesting beer Physical Exam Vital signs: Vital Signs 05/10/18 08:00 05/10/18 09:52 05/10/18 09:55 Temperature 98 F Pulse Rate 92 H Respiratory Rate 18 17 17 Blood Pressure 115/67 Pulse Oximetry 96 05/10/18 11:44 05/10/18 16:13 05/10/18 20:00 Temperature 98.8 F 98.5 F 97.8 F Pulse Rate 94 H 97 H 87 Respiratory Rate 18 18 17 Blood Pressure 150/74 H 162/74 H 114/64 Pulse Oximetry 95 92 L 92 L 05/11/18 00:00 05/11/18 04:00 Temperature 98 F 98.7 F Pulse Rate 93 H 88 Respiratory Rate 16 16 Blood Pressure 140/85 152/84 H Pulse Oximetry 92 L 93 L Intake & Output 05/10/18 05/10/18 05/11/18 06:59 18:59 06:59 Intake Total 2720 / 2720 Output Total 700 / 700 Balance 2019 Intake: IV 1999 / 1999 LR 1000 mL Inj 1,000 ML @ Wide 1000 / 1000 Open IV.SIG .Q0M RANDY Rx#: [id number] Oral 720 / 720 Output: Urine 700 / 700 Other: Date of Last Bowel Movement 05/08/18 05/09/18 05/09/18 Narrative: GENERAL: This is a well-nourished, well-developed patient, in no apparent distress. SKIN: Warm and dry. HEENT: Normocephalic. Nose without bleeding. Airway patent. NECK: Trachea midline. No JVD. Supple. CARDIOVASCULAR: Regular rate and rhythm without murmurs, gallops, or rubs. RESPIRATORY: Diminished breath sounds no wheezes, rales, or rhonchi. GASTROINTESTINAL: Abdomen soft, non-tender, nondistended. Bowel Sounds normoactive x4. MUSCULOSKELETAL: Extremities without clubbing, cyanosis. Bilateral lower extremity trace edema NEUROLOGICAL: Awake and alert. Oriented to place, person. Moves all extremities. Normal speech. Results - Labs CBC & Chem 7: 05/10/18 06:04 Laboratory Results - last 24 hr 05/10/18 05/10/18 06:04 06:04 Hgb 8.4 L Hct 24.3 L PT 11.5 INR 1.1 Assessment and Plan - Ortho Post Op Day # 3 - Assessment and Plan POD #3 s/p L rev NED WBAT low dose coumadin for dvt prop history of alcohol dependence post-op anemia - asymptomatic discharge to SNF when authorized, orthopedically stable [facility] will not accept pt because of alcohol requirement possible home with home [facility] if no rehab will accept
[2018-05-11 08:00] LABS: INR 1.1 Ratio; Prothrombin Time 10.8 sec (9.8-11.6)
[2018-05-11] MEDS: Senna/Docusate Sodium 8.6/50 MG Tablet PO SCH ×2 (08:07→20:01)
[2018-05-11] MEDS: Folic Acid 1 MG Tablet PO SCH (08:08)
[2018-05-12 06:02] LABS: INR 1.1 Ratio; Prothrombin Time 10.8 sec (9.8-11.6)
[2018-05-12] MEDS: Senna/Docusate Sodium 8.6/50 MG Tablet PO SCH (08:45)
[2018-05-12] MEDS: Folic Acid 1 MG Tablet PO SCH (09:40)
--- NOTE | 2018-05-12 16:29 | P.PNOP ---
Subjective Interval history: pt doing well, discharge was held due to needing to go to rehab and alcoholic hx has had no alcohol in two days, no withdraw symptoms hip doing well Physical Exam Vital signs: Vital Signs 05/11/18 20:00 05/12/18 00:00 05/12/18 04:00 Temperature 98.5 F 98.6 F 98.4 F Pulse Rate 85 86 83 Respiratory Rate 17 16 16 Blood Pressure 129/76 153/86 H 139/76 Pulse Oximetry 97 96 97 05/12/18 08:00 05/12/18 12:00 Temperature 98.8 F 97.9 F Pulse Rate 82 85 Respiratory Rate 18 18 Blood Pressure 146/77 H 136/77 Pulse Oximetry 95 99 Intake & Output 05/11/18 05/12/18 05/12/18 18:59 06:59 18:59 Intake Total 360 / 360 Output Total 300 / 300 Balance 60 / 60 Weight 103 kg Intake: Oral 360 / 360 Output: Urine 300 / 300 Other: # Voids 2 2 Date of Last Bowel Movement 05/09/18 05/09/18 # Emeses 1 Narrative: left hip, dressing dry and intact no calf tenderness +NVI . Results - Labs CBC & Chem 7: 05/10/18 06:04 Laboratory Results - last 24 hr 05/12/18 05:07 PT 10.8 INR 1.1 Assessment and Plan - Assessment and Plan POD #4 s/p L rev NED WBAT low dose coumadin for dvt prop -7.5 mg history of alcohol dependence- no alcohol over last 48 hours and doing fine post-op anemia - asymptomatic discharge to SNF today, orthopedically stable
[2018-05-12 16:54] VITALS: BP 159/80; PULSE 88; RESP 20; TEMP 98.8; O2SAT 97
--- NOTE | 2018-06-03 14:16 | P.DS ---
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 He developed progressive hip pain 3 months following the surgery which did not respond to conservative care. He states ambulation is difficult due to the left hip and now relies on a cane. Patient was evaluated and had x-rays of the hip. He then underwent left hip aspiration and manipulation, bone scan and labs which showed no evidence of infection. It was recommended for patient to undergo left revisional total hip surgery to improve his quality of life and ADLs. DS: Medications - Discharge Medications Prescriptions: hydrocodone-acetaminophen 1 - 2 tab PO Q6H PRN #40 tab PRN Reason: pain warfarin [Coumadin] 7.5 mg PO DAILY #25 tab DS: Summary Hospital Course: 73 year old male underwent satisfactory anaesthesia on the date of surgery. He underwent revisional left total hip arthroplasty. He was treated with low dose coumadin night before surgery and will be treated with low dose coumadin for four weeks following surgery for DVT prop. He did well following the procedure. He was started with full weight bearing ambulation on pod #1 using a walker. Also treated with knee high TEDS and sequentials. Patient does have history of alcoholism and withdrawal precautions were followed in his post operative course. He was managed by medical during his stay. He was discharged to a [facility] facility in stable condition. - Time Spent with Patient Total time spent providing and/or coordinating discharge services: Less than 30 minutes - Quality: VTE Deep Vein Thrombosis/Pulmonary Embolism Present on Admission: No Results Procedures completed during hospitalization: Left revisional total hip arthroplasty - Impressions ITS Impressions Hip X-Ray 05/08/18 00:00 CONCLUSION: Orthopedic hardware in excellent position. Discharge Plan - Discharge Disposition Patient Disposition: 03 Discharge to SNF - Discharge Condition Condition: Stable - Discharge Order Discharge Orders: Discharge Order (Routine); Ordered 05/09/18 Ordered By: Veronica Reyes - Discharge Details Anticipated Discharge Date: 05/09/18 - Physicians Team Primary Care Provider: Angel Fonseca Attending Provider: Bakari Hope Other Providers: Pancho Hope MD ; [facility] ; [employer] ; Ana Rivera MD - Rxs /Orders / Referrals /Forms Prescriptions: New hydrocodone-acetaminophen 7.5-325 mg Tablet 1 - 2 tab PO Q6H PRN (Reason: pain) Qty: 40 RF: 0 warfarin [Coumadin] 7.5 mg Tablet 7.5 mg PO DAILY Qty: 25 RF: 0 Continue amlodipine 5 mg Tablet 5 mg PO DAILY Ambulatory Orders / Order Sets / DME: Bedside Commode (Routine) Location: Determined by Patient Ordered By: Veronica Reyes Walker With Front Wheels (1 each) (Routine) Location: Determined by Patient Ordered By: Veronica Reyes Referrals: Bakari Hope MD [Orthopaedics] - See Instructions Angel Fonseca MD [Primary Care Provider] - See Instructions - Discharge Instructions Patient Printed Instructions: Hydrocodone/Acetaminophen (By mouth), Warfarin ( By mouth), Laxative, Stool Softeners (By mouth), Precautions after Total Joint Replacement Surgery (DC), Bandage Change (DC), Fall Prevention (DC), Total Hip Replacement (DC) Additional Instructions: Follow up with Dr Bakari Hope in 2 weeks as instructed, Take your medications as prescribed, Canvas knee splint on at bedtime only, Remember your hip precautions. No bending 90 degress, No twisting, turning No heavy lifting. No Drinking, Driving, or Operating heavy machinery while taking narcotics. - Post Discharge Care Plan Care Plan Goals: Discharge Care Plan Goals for Total Hip Replacement You had a hip replacement surgery. This means your natural hip was replaced with an artificial joint (prosthesis). You may be recovering at home or in a rehabilitation facility. Either way, you must take care of your new hip. Here are some goals to help you heal well. Directions to Meet your Goals: 1. Activity & Exercises: * Take pain medicine as directed by your doctor. * Dont drive until your doctor says its OK. And never drive while taking opioid pain medicine. * Wear the support stockings you were given in the hospital as directed by your surgeon. * Dont sit for more than 30 to 45 minutes at one time. * Dont lean forward while sitting. * Dont cross your legs. * Keep your feet flat on the floor. Dont turn your foot or leg inward. This stresses your hip joint. * Use an elevated toilet seat for 6 weeks after surgery. * Nap if you are tired, but dont stay in bed all day. * Sit on a firm cushion when you ride in a car and avoid sitting too low. Try not to bend your hip too much when getting in and out of the car. 2. Prevent Falls/Injury: * Follow your doctors orders regarding how much weight to put on the affected leg. * Dont bend at the hip when you bend over. Don't bend at the waist to put on socks and shoes. And avoid picking up items from the floor. * Use a cane, crutches, a walker, or handrails until your balance, flexibility, and strength improve. And remember to ask for help from others when you need it. * Free up your hands so that you can use them to keep balance. Use a luis pack , apron, or pockets to carry things. * Arrange your household to keep the items you need handy. Keep everything else out of the way. * Remove items that may cause you to fall, such as throw rugs and electrical cords. * Use nonslip bath mats, grab bars, an elevated toilet seat, and a shower chair in your bathroom * Sit on a shower stool or chair when you shower to keep from falling. 3. Precautions: * Prevent infection. Any infection will need to be treated immediately. Call your doctor right away if you think you might have an infection. * Tell your dentist that you have an artificial joint and take antibiotics as prescribed before any dental work. * Tell all your healthcare providers about your artificial joint before any medical procedure. * Maintain a healthy weight. Get help to lose any extra pounds. Added body weight puts stress on the joints. 4. Incision Care: * Prevent infection by washing your hands often. If an infection occurs, it will need to be treated right away. * Call your doctor right away if you think you may have an infection. Symptoms include a fever or an incision that leaks white, green, or yellow fluid. * Don't soak your incision in water until your doctor says its OK. This means no hot tubs, bathtubs, or swimming pools. * Follow your doctor's instructions for changing the dressing. * Dont rub the incision, or apply creams or lotions to it. * If you notice any redness or drainage around the bandage site, contact your surgeon's office immediately. 5. Follow-Up: Do Not miss your follow-up appointment. Keep up with all your appointments and yearly check ups When to call your doctor: Call your doctor right away if you have: Hip pain gets worse Pain or swelling in your calf or leg not related to your incision Tenderness or redness in your calf Fever of 100.4F (38C) or higher, or as directed by your healthcare provider Shaking chills Swelling or redness at the incision site gets worse Fluid draining from the incision Call 911: Call 911 right away if you have: Chest pain Shortness of breath Any pain or tenderness in your calf
== END 2018-05-12 18:45 ==
LOC: HSDI 09:36 → N06 16:46
PROVIDERS: ADMIT Orthopaedic Surgery Orthopaedic Surgery of the Spine; ATTEND Orthopaedic Surgery Orthopaedic Surgery of the Spine